=== PATIENT | male | born 1985 ===

== ENCOUNTER 2017-01-14 11:04 | Emergency (ER) | payer OTHER ==
--- NOTE | 2017-01-14 12:16 | CT ---
PROCEDURE: CT HEAD WITHOUT CONTRAST. HISTORY: Headache ongoing 30 days COMPARISON: No prior studies available for comparison TECHNIQUE: Axial computed tomography images were obtained through the head/brain without intravenous contrast. Radiation dose: Total exam DLP = 793.90 mGy-cm. This CT exam was performed using one or more of the following dose reduction techniques: Automated exposure control, adjustment of the mA and/or kV according to patient size, and/or use of iterative reconstruction technique. FINDINGS: HEMORRHAGE: No intracranial hemorrhage. BRAIN: No mass effect or edema. No atrophy or chronic microvascular ischemic changes. VENTRICLES: Unremarkable. No hydrocephalus. CALVARIUM: Unremarkable. PARANASAL SINUSES: Unremarkable as visualized. No significant inflammatory changes. MASTOID AIR CELLS: Unremarkable as visualized. No inflammatory changes. OTHER FINDINGS: None. IMPRESSION: No acute intracranial hemorrhage.
--- NOTE | 2017-01-14 12:21 | ED PDOC ---
HPI: Headache Time Seen by Provider: 01/14/17 11:04 Chief Complaint (Nursing): Headache Chief Complaint (Provider): Headache History Per: Patient History/Exam Limitations: no limitations Onset/Duration Of Symptoms: Days (x1 month) Current Symptoms Are (Timing): Still Present Additional Complaint(s): 31 y/o male presents to the emergency department with a complaint of an ongoing headache every day at night x1 month. Patient says he has a minimal headache at the moment. Reports trying Tylenol with relief of symptoms at times. States he is also here for an evaluation for dark spots he noted along his back remnant from previous rash when he was hospitalized in the past. Denies dizziness, vision changes, use of glasses, nasal discharge, or testing of other medications. Of note, patient has a history of seasonal allergies and is currently symptomatic in regards to those symptoms. Patient is requesting medication and an evaluation. Past Medical History Reviewed: Historical Data, Nursing Documentation, Vital Signs Vital Signs: Last Vital Signs Temp 98.6 F 01/14/17 11:08 Pulse 83 01/14/17 11:08 Resp 18 01/14/17 11:08 BP 160/86 H 01/14/17 11:08 Pulse Ox 98 01/14/17 11:08 - Medical History PMH: No Chronic Diseases - Surgical History Surgical History: Appendectomy - Family History Family History: States: No Known Family Hx - Social History Current smoker - smoking cessation education provided: No Alcohol: Social Drugs: Denies - Home Medications Home Medications: Ambulatory Orders Medication Instructions Recorded Acetaminophen [Acetaminophen Extra 2 tab PO Q6 PRN #10 tablet 01/14/17 Strength] - Allergies Allergies/Adverse Reactions: Allergies Allergy/AdvReac Type Severity Reaction Status Date / Time No Known Allergies Allergy Verified 01/14/17 11:08 Review of Systems ROS Statement: Except As Marked, All Systems Reviewed And Found Negative Eyes: Negative for: Vision Change ENT: Negative for: Nose Discharge Skin: Positive for: Rash Neurological: Positive for: Headache. Negative for: Dizziness Physical Exam - Reviewed Nursing Documentation Reviewed: Yes Vital Signs Reviewed: Yes - Physical Exam Appears: Positive for: Well (Comfortable), Non-toxic, No Acute Distress. Negative for: Uncomfortable Head Exam: Positive for: ATRAUMATIC, NORMAL INSPECTION, NORMOCEPHALIC Skin: Positive for: Warm, Dry, Rash (Small point hyperpigmented rash noted along posterior thorax and arms. No signs of erythema. ) Neck: Positive for: Normal, Supple Cardiovascular/Chest: Positive for: Regular Rate, Rhythm. Negative for: Murmur Respiratory: Positive for: Normal Breath Sounds. Negative for: Accessory Muscle Use, Respiratory Distress Gastrointestinal/Abdominal: Positive for: Normal Exam, Soft. Negative for: Tenderness Extremity: Positive for: Normal ROM. Negative for: Pedal Edema Neurologic/Psych: Positive for: Alert, aircraft cleaner II-XII (Intact. ), Oriented (x3), Cerebellar Tests (Normal. Finger to nose test intact. ), Gait (Steady). Negative for: Facial Droop - ECG O2 Sat by Pulse Oximetry: 98 (RA) Pulse Ox Interpretation: Normal - Progress ED Course And Treament: repeat BP 135/72 Medical Decision Making Medical Decision Making: Time: 11:39 Initial impression: Headache Initial plan: --Head CT --AccuCheck Time: 12:14 --Head CT FINDINGS: HEMORRHAGE: No intracranial hemorrhage. BRAIN: No mass effect or edema. No atrophy or chronic microvascular ischemic changes. VENTRICLES: Unremarkable. No hydrocephalus. CALVARIUM: Unremarkable. PARANASAL SINUSES: Unremarkable as visualized. No significant inflammatory changes. MASTOID AIR CELLS: Unremarkable as visualized. No inflammatory changes. OTHER FINDINGS: None. IMPRESSION: No acute intracranial hemorrhage. Scribe Attestation: Documented by Ana Cooper, acting as a scribe for Lincoln Mosquera PA-C. Provider Scribe Attestation: All medical record entries made by the Scribe were at my direction and personally dictated by me. I have reviewed the chart and agree that the record accurately reflects my personal performance of the history, physical exam, medical decision making, and the department course for this patient. I have also personally directed, reviewed, and agree with the discharge instructions and disposition. Disposition - Clinical Impression Clinical Impression: Tension headache - Patient ED Disposition Is Patient to be Admitted: No - Disposition Referrals: [facility] [Outside] Disposition: Routine/Home Disposition Time: 13:47 Condition: FAIR Additional Instructions: APPLICA " VITAMIN E OIL " A CHAVEZ PIEL Prescriptions: Acetaminophen [Acetaminophen Extra Strength] 2 tab PO Q6 PRN #10 tablet PRN Reason: Headache Instructions: Tension Headache (ED) Forms: [email or web address] (Mozambican) Print Language: GHANAIAN
[2017-01-14 14:01] VITALS: BP 135/72; PULSE 76; RESP 19; TEMP 98.9
[2017-01-14 14:14] VITALS: O2SAT 98
== END 2017-01-14 14:20 | disposition home or self-care (01) ==
LOC: H.ER 11:04
DX: G44.209 Tension-type headache, unspecified, not intractable (principal)

== ENCOUNTER 2017-06-27 21:12 | Emergency (ER) | payer SELFPAY ==
[2017-06-27 21:44] VITALS: O2SAT 99
--- NOTE | 2017-06-27 22:11 | ED PDOC ---
HPI: General Adult Time Seen by Provider: 06/27/17 22:10 Chief Complaint (Nursing): Flu-like Symptoms Chief Complaint (Provider): fever/cough History Per: Patient (31 y/o male here fever/cough/uri x 1 day. No vomiting. No ill contacts. No antipyretics today.) Past Medical History Reviewed: Historical Data, Nursing Documentation, Vital Signs Vital Signs: Last Vital Signs Temp 102.7 F H 06/27/17 22:48 Pulse 109 H 06/27/17 21:42 Resp 20 06/27/17 21:42 BP 130/76 06/27/17 22:12 Pulse Ox 99 06/27/17 22:11 - Surgical History Surgical History: Appendectomy - Family History Family History: States: No Known Family Hx - Home Medications Home Medications: Ambulatory Orders Medication Instructions Recorded Acetaminophen [Acetaminophen Extra 2 tab PO Q6 PRN #10 tablet 01/14/17 Strength] Acetaminophen [Acetaminophen Extra 2 tab PO Q6 PRN #24 tablet 06/27/17 Strength] Ibuprofen [Motrin Tab] 800 mg PO Q8 PRN #21 tab 06/27/17 Oseltamivir [Tamiflu] 75 mg PO Q12 #9 cap 06/27/17 Pseudoephedrine [Sudafed Tab] 60 mg PO Q6 PRN #24 tab 06/27/17 - Allergies Allergies/Adverse Reactions: Allergies Allergy/AdvReac Type Severity Reaction Status Date / Time No Known Allergies Allergy Verified 01/14/17 11:08 Review of Systems ROS Statement: Except As Marked, All Systems Reviewed And Found Negative Physical Exam - Reviewed Nursing Documentation Reviewed: Yes Vital Signs Reviewed: Yes - Physical Exam Appears: Positive for: Well, Non-toxic, No Acute Distress Head Exam: Positive for: ATRAUMATIC, NORMAL INSPECTION, NORMOCEPHALIC Skin: Positive for: Normal Color, Warm, DRY Eye Exam: Positive for: EOMI, Normal appearance, PERRL ENT: Positive for: Normal ENT Inspection, Nasal Congestion Neck: Positive for: Normal, Painless ROM Cardiovascular/Chest: Positive for: Regular Rate, Rhythm Respiratory: Positive for: CNT, Normal Breath Sounds Gastrointestinal/Abdominal: Positive for: Normal Exam, Bowel Sounds, Soft Back: Positive for: Normal Inspection Extremity: Positive for: Normal ROM Neurologic/Psych: Positive for: Alert, Oriented - ECG O2 Sat by Pulse Oximetry: 99 - Progress ED Course And Treament: pseudoephedrine 60 m x 1 dose tamiflu 75 mg motrin 800mg tylenol 975mg 1 dose influenza B positive Disposition - Clinical Impression Clinical Impression: Influenza - Patient ED Disposition Is Patient to be Admitted: No - Disposition Disposition: Routine/Home Disposition Time: 23:29 Condition: FAIR Prescriptions: Acetaminophen [Acetaminophen Extra Strength] 2 tab PO Q6 PRN #24 tablet PRN Reason: Fever >100.4 F Ibuprofen [Motrin Tab] 800 mg PO Q8 PRN #21 tab PRN Reason: Fever >100.4 F Oseltamivir [Tamiflu] 75 mg PO Q12 #9 cap Pseudoephedrine [Sudafed Tab] 60 mg PO Q6 PRN #24 tab PRN Reason: Nasal Congestion Instructions: Influenza (ED) Forms: [employer] (Maori), [facility] ED School/Work Excuse Print Language: BRAZILIAN
[2017-06-27 23:56] VITALS: BP 129/77; PULSE 84; RESP 16; TEMP 99.8
== END 2017-06-27 23:57 | disposition home or self-care (01) ==
LOC: H.ER 21:12
DX: J11.1 Influenza due to unidentified influenza virus with other respiratory manifestations (principal)

== ENCOUNTER 2017-09-27 22:36 | Emergency (ER) | payer SELFPAY ==
[2017-09-27 23:22] VITALS: O2SAT 100
--- NOTE | 2017-09-28 02:17 | ED PDOC ---
HPI: General Adult Time Seen by Provider: 09/28/17 00:07 Chief Complaint (Nursing): ENT Problem Chief Complaint (Provider): ENT Problem History Per: Patient History/Exam Limitations: no limitations Onset/Duration Of Symptoms: Days (x3) Current Symptoms Are (Timing): Still Present Additional Complaint(s): 31 year old male presents to ED with complaints of throat pain x3 days and has no past medical history. Patient notes pain significantly increased today, prompting ED arrival. (+) cough. (-) fever or vomiting. 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 Past Medical History Reviewed: Historical Data, Nursing Documentation, Vital Signs Vital Signs: Last Vital Signs Temp 98 F 09/28/17 05:02 Pulse 78 09/28/17 05:02 Resp 14 09/28/17 05:02 BP 131/80 09/28/17 05:02 Pulse Ox 100 09/28/17 05:02 - Medical History PMH: No Chronic Diseases - Surgical History Surgical History: Appendectomy - Family History Family History: States: Unknown Family Hx - Social History Current smoker - smoking cessation education provided: No Ex-Smoker (has not smoked in the last 12 months): No Alcohol: None Drugs: Denies - Home Medications Home Medications: Ambulatory Orders Medication Instructions Recorded Acetaminophen [Acetaminophen Extra 2 tab PO Q6 PRN #10 tablet 01/14/17 Strength] Acetaminophen [Acetaminophen Extra 2 tab PO Q6 PRN #24 tablet 06/27/17 Strength] Ibuprofen [Motrin Tab] 800 mg PO Q8 PRN #21 tab 06/27/17 Oseltamivir [Tamiflu] 75 mg PO Q12 #9 cap 06/27/17 Pseudoephedrine [Sudafed Tab] 60 mg PO Q6 PRN #24 tab 06/27/17 - Allergies Allergies/Adverse Reactions: Allergies Allergy/AdvReac Type Severity Reaction Status Date / Time No Known Allergies Allergy Verified 01/14/17 11:08 Review of Systems ROS Statement: Except As Marked, All Systems Reviewed And Found Negative Constitutional: Negative for: Fever Respiratory: Positive for: Cough Gastrointestinal: Negative for: Vomiting Physical Exam - Reviewed Nursing Documentation Reviewed: Yes Vital Signs Reviewed: Yes - Physical Exam Appears: Positive for: Non-toxic, No Acute Distress Head Exam: Positive for: ATRAUMATIC, NORMOCEPHALIC Skin: Positive for: Normal Color, Warm, Dry Eye Exam: Positive for: Normal appearance, EOMI, PERRL ENT: Positive for: Normal ENT Inspection. Negative for: Pharyngeal Erythema, Tonsillar Exudate Neck: Positive for: Painless ROM Cardiovascular/Chest: Positive for: Regular Rate, Rhythm Respiratory: Positive for: Normal Breath Sounds - ECG O2 Sat by Pulse Oximetry: 100 (RA) Pulse Ox Interpretation: Normal Medical Decision Making Medical Decision Makin Initial impression: r/o strep Initial orders: * rapid strep 0408 Strep: negative Dx: laryngitis Patient is stable for discharge home and was instructed to follow up with the clinic in 1-2 days. Return precautions given. Scribe Attestation: Documented by Zara Steele, acting as a scribe for Danielito Aguila MD. Provider Scribe Attestation: All medical record entries made by the Scribe were at my direction and personally dictated by me. I have reviewed the chart and agree that the record accurately reflects my personal performance of the history, physical exam, medical decision making, and the department course for this patient. I have also personally directed, reviewed, and agree with the discharge instructions and disposition. Disposition - Clinical Impression Clinical Impression: Laryngitis - Patient ED Disposition Is Patient to be Admitted: No Counseled Patient/Family Regarding: Studies Performed, Diagnosis, Need For Followup - Disposition Disposition: Routine/Home Disposition Time: 03:30 Condition: IMPROVED Additional Instructions: follow up with your primary doctor in 1-2 days return to the ED with any worsening or concerning symptoms Instructions: Laryngitis Forms: [employer] (Nauruan) Print Language: BRITISH [place]
[2017-09-28 05:03] VITALS: BP 131/80; PULSE 78; RESP 14; TEMP 98
== END 2017-09-28 05:03 | disposition home or self-care (01) ==
LOC: H.ER 22:36
DX: J04.0 Acute laryngitis (principal)